=== PATIENT | female | born 1935 | race Caucasian/White ===

== ENCOUNTER 2017-08-12 13:42 | Inpatient (IN) | payer MEDICARE, BC ==
[~2017-08-12] VITALS: Ht 160 cm; Wt 60.0 kg
[~2017-08-12 13:42] MED LIST: DICL100G15 TOP
[2017-08-12] MEDS ORDERED: acetaminophen 650mg rectal suppository RC STA (14:05)
[2017-08-12] MEDS ORDERED: normal saline 1000ML IV soln IV ONE (14:05)
[2017-08-12] MEDS ORDERED: acetaminophen 325mg tablet PO STA (14:05)
[2017-08-12] MEDS ORDERED: levoFLOXACIN-Levaquin 750MG/D5 150 ML IV ONE (14:05)
[2017-08-12 14:17] LABS: CLARITY,URINE SLIGHTLY CLOUDY (Clear); COLOR,URINE YELLOW (Yellow); GLUCOSE, URINE NEGATIVE (Neg); KETONES,URINE NEGATIVE (Neg); LEUKOCYTE ESTERASE ,URINE TRACE (Neg); NITRITES, URINE POSITIVE (Neg); OCCULT BLOOD,URINE MODERATE (Neg); PH,URINE 6.5 (4.8-8.0); PROTEIN,URINE 100 mg/dl (Neg); UROBILINOGEN,URINE 0.2 E.U/dL (0.2-1.0)
[2017-08-12 14:19] LABS: UA COLLECTION TYPE FOLEY CATH
[2017-08-12 14:27] LABS: BACTERIA,URINE 3+ /HPF (Neg); SQUAMOUS EPITHELIAL CELL,UR MODERATE /LPF (FEW); WBC CLUMPS,URINE MODERATE /HPF (NEGATIVE); WBC,URINE 50-100 /HPF (0-4)
[2017-08-12 14:50] LABS: BASOPHILS % (AUTO) 0 % (0-1); EOSINOPHILS % (AUTO) 0 % (0-6); HEMATOCRIT 34.4 % (35.0-45.0); HEMOGLOBIN 11.8 g/dl (12.0-16.0); LYMPHOCYTES # (AUTO) 0.8 X10'3 (1.1-4.8); LYMPHOCYTES % (AUTO) 6.3 % (21-51); MEAN CORPUSCULAR HEMOGLOBIN 29.6 PG (27.0-31.0); MEAN CORPUSCULAR HGB CONC 34.2 % (33.0-36.5); MEAN CORPUSCULAR VOLUME 86.5 FL (78-98); MEAN PLATELET VOLUME 6.4 FL (7.4-10.4); MONOCYTES # (AUTO) 0.4 X10'3 (0-0.9); NEUTROPHILS # (AUTO) 12.2 X10'3 (1.8-7.7); NEUTROPHILS % (AUTO) 90.7 % (42-75); PLATELET COUNT 211 X10'3 (140-440); RED BLOOD COUNT 3.98 X10'6 (4.20-5.60); RED CELL DISTRIBUTION WIDTH 13.4 % (11.5-14.5); WHITE BLOOD COUNT 13.5 X10'3 (4.5-11.0)
[2017-08-12 14:56] LABS: PROTHROMBIN TIME 10.2 SECONDS (9.0-12.0)
[2017-08-12 15:02] LABS: ALANINE AMINOTRANSFERASE 12 U/L (12-78); ALBUMIN 3.2 G/DL (3.4-5.0); ALBUMIN/GLOBULIN RATIO 0.8 (1.1-1.5); ALKALINE PHOSPHATASE 77 IU/L (46-116); ANION GAP 13 (8-16); ASPARTATE AMINO TRANSFERASE 19 U/L (10-37); BILIRUBIN,TOTAL 0.6 MG/DL (0.1-1.0); BLOOD UREA NITROGEN 23 MG/DL (7-18); BUN/CREATININE RATIO 19.3 (6.6-38.0); CALCIUM 9.3 MG/DL (8.5-10.1); CHLORIDE 103 MMOL/L (99-107); CREATININE 1.19 MG/DL (0.40-0.90); GLUCOSE 96 MG/DL (70-104); POTASSIUM 3.8 MMOL/L (3.5-5.1); SODIUM 138 MMOL/L (135-145); TOTAL PROTEIN 7.3 G/DL (6.4-8.2); eGFR 44 ML/MIN
[2017-08-12] MEDS ORDERED: NO HOME MEDS (16:09)
[2017-08-12] MEDS ORDERED: LORazepam 2 mg/ml vial IV ONE (16:15)
[2017-08-12] MEDS ORDERED: acetaminophen 325mg tablet PO PRN (19:10)
[2017-08-12] MEDS ORDERED: ondansetron/PF 4mg/2ml inj IV PRN (19:10)
[2017-08-12] MEDS ORDERED: mag hydrox/Alum hydrox/simeth 30ml oral suspension PO PRN (19:10)
[2017-08-12] MEDS ORDERED: magnesium hydroxide 30ml (MOM) UD suspension PO PRN (19:10)
[2017-08-12] MEDS ORDERED: acetaminophen 650mg rectal suppository RC PRN (19:15)
[2017-08-12] MEDS ORDERED: LORazepam 2 mg/ml vial IV PRN (19:25)
[2017-08-12 19:46] LABS: CHOL/HDL RATIO 2.2 (0.00-4.99); CHOLESTEROL 191 MG/DL (0-200); HDL CHOLESTEROL 87 MG/DL (35-60); LDL CHOLESTEROL 87 MG/DL (50-100); TRIGLYCERIDES 90 MG/DL (20-135)
[2017-08-12] MEDS: normal saline 1000ml 1,000 ML IV SCH (20:24)
[2017-08-12] MEDS: cefepime 2g/NS 100ml ADVANTAGE 100 ML IV SCH (20:24)
[2017-08-12] MEDS: heparin, porcine 5000 units/ml vial SQ SCH (20:25)
[2017-08-12 21:30] VITALS: BP 140/67
[2017-08-12 23:00] VITALS: BP 151/69
[2017-08-13 03:00] VITALS: BP 164/78
[2017-08-13] MEDS: normal saline 1000ml 1,000 ML IV SCH ×2 (05:10→15:09)
[2017-08-13 05:55] LABS: BASOPHILS % (AUTO) 0 % (0-1); EOSINOPHILS % (AUTO) 0 % (0-6); HEMATOCRIT 31.5 % (35.0-45.0); HEMOGLOBIN 10.6 g/dl (12.0-16.0); LYMPHOCYTES # (AUTO) 0.5 X10'3 (1.1-4.8); LYMPHOCYTES % (AUTO) 2.9 % (21-51); MEAN CORPUSCULAR HEMOGLOBIN 29.2 PG (27.0-31.0); MEAN CORPUSCULAR HGB CONC 33.8 % (33.0-36.5); MEAN CORPUSCULAR VOLUME 86.3 FL (78-98); MEAN PLATELET VOLUME 6.5 FL (7.4-10.4); MONOCYTES # (AUTO) 0.9 X10'3 (0-0.9); MONOCYTES % (AUTO) 5.5 % (2-12); NEUTROPHILS # (AUTO) 14.1 X10'3 (1.8-7.7); NEUTROPHILS % (AUTO) 91.6 % (42-75); PLATELET COUNT 160 X10'3 (140-440); RED BLOOD COUNT 3.65 X10'6 (4.20-5.60); RED CELL DISTRIBUTION WIDTH 13.2 % (11.5-14.5); WHITE BLOOD COUNT 15.4 X10'3 (4.5-11.0)
[2017-08-13 06:00] VITALS: BP 162/66
[2017-08-13 06:13] LABS: ALANINE AMINOTRANSFERASE 11 U/L (12-78); ALBUMIN 2.5 G/DL (3.4-5.0); ALBUMIN/GLOBULIN RATIO 0.6 (1.1-1.5); ALKALINE PHOSPHATASE 60 IU/L (46-116); ANION GAP 13 (8-16); ASPARTATE AMINO TRANSFERASE 17 U/L (10-37); BILIRUBIN,TOTAL 0.6 MG/DL (0.1-1.0); BLOOD UREA NITROGEN 22 MG/DL (7-18); BUN/CREATININE RATIO 18.8 (6.6-38.0); CHLORIDE 102 MMOL/L (99-107); CREATININE 1.17 MG/DL (0.40-0.90); GLUCOSE 103 MG/DL (70-104); SODIUM 136 MMOL/L (135-145); TOTAL CARBON DIOXIDE 21.5 MMOL/L (24-32); TOTAL PROTEIN 6.5 G/DL (6.4-8.2); eGFR 45 ML/MIN
[2017-08-13] MEDS: cefepime 2g/NS 100ml ADVANTAGE 100 ML IV SCH ×2 (07:54→20:04)
[2017-08-13] MEDS: heparin, porcine 5000 units/ml vial SQ SCH ×2 (07:55→20:05)
[2017-08-13] MEDS: pantoprazole 40mg Tablet.DR PO SCH (07:55)
[2017-08-13] MEDS: aspirin 81mg tablet.DR PO SCH (07:55)
[2017-08-13 11:00] VITALS: BP 157/73
[2017-08-13] MEDS ORDERED: amLODIPine 5mg tablet PO ONE (13:10)
[2017-08-13 15:00] VITALS: BP 115/64
[2017-08-13 18:00] VITALS: BP 165/83
[2017-08-13] MEDS: lactobacillus rhamnosus 10,000 MMU CELLS/CAPSULE PO SCH (20:05)
[2017-08-13 22:00] VITALS: BP_SYST 105; BP_SYST 128; BP_DIAS 69; BP_DIAS 74
[2017-08-14 02:00] VITALS: BP 132/66
[2017-08-14 04:57] LABS: BASOPHILS % (AUTO) 0.1 % (0-1); EOSINOPHILS % (AUTO) 0 % (0-6); HEMATOCRIT 30.1 % (35.0-45.0); HEMOGLOBIN 9.9 g/dl (12.0-16.0); LYMPHOCYTES # (AUTO) 0.6 X10'3 (1.1-4.8); LYMPHOCYTES % (AUTO) 6.7 % (21-51); MEAN CORPUSCULAR HEMOGLOBIN 28.9 PG (27.0-31.0); MEAN CORPUSCULAR VOLUME 87.8 FL (78-98); MEAN PLATELET VOLUME 6.7 FL (7.4-10.4); MONOCYTES # (AUTO) 0.6 X10'3 (0-0.9); MONOCYTES % (AUTO) 6.8 % (2-12); NEUTROPHILS # (AUTO) 8.2 X10'3 (1.8-7.7); NEUTROPHILS % (AUTO) 86.4 % (42-75); PLATELET COUNT 149 X10'3 (140-440); RED BLOOD COUNT 3.43 X10'6 (4.20-5.60); RED CELL DISTRIBUTION WIDTH 13.4 % (11.5-14.5); WHITE BLOOD COUNT 9.5 X10'3 (4.5-11.0)
[2017-08-14] MEDS: normal saline 1000ml 1,000 ML IV SCH ×2 (05:00→11:10)
[2017-08-14 05:31] LABS: ALANINE AMINOTRANSFERASE 8 U/L (12-78); ALBUMIN 2.1 G/DL (3.4-5.0); ALBUMIN/GLOBULIN RATIO 0.6 (1.1-1.5); ALKALINE PHOSPHATASE 54 IU/L (46-116); ASPARTATE AMINO TRANSFERASE 14 U/L (10-37); BILIRUBIN,TOTAL 0.4 MG/DL (0.1-1.0); BLOOD UREA NITROGEN 22 MG/DL (7-18); BUN/CREATININE RATIO 20.8 (6.6-38.0); CALCIUM 9.2 MG/DL (8.5-10.1); CHLORIDE 103 MMOL/L (99-107); CREATININE 1.06 MG/DL (0.40-0.90); GLUCOSE 111 MG/DL (70-104); TOTAL CARBON DIOXIDE 21.6 MMOL/L (24-32); TOTAL PROTEIN 5.7 G/DL (6.4-8.2); eGFR 50 ML/MIN
[2017-08-14 05:49] LABS: ANION GAP 9 (8-16); SODIUM 134 MMOL/L (135-145)
[2017-08-14 06:34] LABS: POTASSIUM 2.9 MMOL/L (3.5-5.1)
[2017-08-14] MEDS ORDERED: potassium Cl 20 mEq SR tablet PO PRN (06:45)
[2017-08-14] MEDS ORDERED: magnesium 4gm in 100ml NS 100 ML IV PRN (06:45)
[2017-08-14] MEDS ORDERED: potassium Cl 40MEQ/NS 500ml 500 ML IV PRN ×2 (06:45)
[2017-08-14] MEDS ORDERED: magnesium/D5W IVPB 100 ML IV PRN (06:45)
[2017-08-14 07:06] VITALS: BP 163/70
[2017-08-14] MEDS: pantoprazole 40mg Tablet.DR PO SCH (08:40)
[2017-08-14] MEDS: heparin, porcine 5000 units/ml vial SQ SCH ×2 (08:40→20:51)
[2017-08-14] MEDS: aspirin 81mg tablet.DR PO SCH (08:41)
[2017-08-14] MEDS: amLODIPine 5mg tablet PO SCH (08:42)
[2017-08-14] MEDS: lactobacillus rhamnosus 10,000 MMU CELLS/CAPSULE PO SCH ×2 (08:42→20:51)
[2017-08-14] MEDS: CefTRIAXone 2gm/D5W 50ml 50 ML IV SCH (08:55)
[2017-08-14 11:00] VITALS: BP 148/72
[2017-08-14] MEDS: potassium Cl 20 mEq SR tablet PO PRN ×2 (11:32→17:47)
[2017-08-14 15:00] VITALS: BP 158/62
[2017-08-14] MEDS ORDERED: HYDROcodone/acetaminophen 5mg/325mg tablet PO PRN (16:00)
[2017-08-14 18:00] VITALS: BP 130/64
[2017-08-14] MEDS: nystatin 15 GM powder TP SCH (20:51)
[2017-08-14 22:00] VITALS: BP 147/70
[2017-08-15] MEDS: potassium Cl 20 mEq SR tablet PO PRN (01:35)
[2017-08-15] MEDS: normal saline 1000ml 1,000 ML IV SCH ×2 (01:49→07:10)
[2017-08-15 02:00] VITALS: BP 166/88
[2017-08-15 06:14] LABS: BASOPHILS % (AUTO) 0.3 % (0-1); EOSINOPHILS # (AUTO) 0.1 X10'3 (0-0.9); EOSINOPHILS % (AUTO) 0.7 % (0-6); HEMATOCRIT 31.5 % (35.0-45.0); HEMOGLOBIN 10.7 g/dl (12.0-16.0); LYMPHOCYTES % (AUTO) 12.1 % (21-51); MEAN CORPUSCULAR VOLUME 88.1 FL (78-98); MEAN PLATELET VOLUME 7.6 FL (7.4-10.4); MONOCYTES # (AUTO) 0.8 X10'3 (0-0.9); MONOCYTES % (AUTO) 10.2 % (2-12); NEUTROPHILS # (AUTO) 6.2 X10'3 (1.8-7.7); NEUTROPHILS % (AUTO) 76.7 % (42-75); PLATELET COUNT 149 X10'3 (140-440); RED BLOOD COUNT 3.57 X10'6 (4.20-5.60); RED CELL DISTRIBUTION WIDTH 12.7 % (11.5-14.5); WHITE BLOOD COUNT 8.1 X10'3 (4.5-11.0)
[2017-08-15 06:17] LABS: ALANINE AMINOTRANSFERASE 9 U/L (12-78); ALBUMIN 2.3 G/DL (3.4-5.0); ALBUMIN/GLOBULIN RATIO 0.6 (1.1-1.5); ALKALINE PHOSPHATASE 60 IU/L (46-116); ANION GAP 11 (8-16); ASPARTATE AMINO TRANSFERASE 15 U/L (10-37); BILIRUBIN,TOTAL 0.4 MG/DL (0.1-1.0); BLOOD UREA NITROGEN 15 MG/DL (7-18); CALCIUM 9.3 MG/DL (8.5-10.1); CHLORIDE 106 MMOL/L (99-107); GLUCOSE 94 MG/DL (70-104); MAGNESIUM 1.2 MG/DL (1.5-2.4); POTASSIUM 3.6 MMOL/L (3.5-5.1); SODIUM 138 MMOL/L (135-145); TOTAL CARBON DIOXIDE 21.4 MMOL/L (24-32); TOTAL PROTEIN 6.2 G/DL (6.4-8.2); eGFR 53 ML/MIN
[2017-08-15 07:13] VITALS: BP 172/74
[2017-08-15] MEDS: pantoprazole 40mg Tablet.DR PO SCH (08:12)
[2017-08-15] MEDS: heparin, porcine 5000 units/ml vial SQ SCH ×2 (08:13→19:37)
[2017-08-15] MEDS: amLODIPine 5mg tablet PO SCH (08:13)
[2017-08-15] MEDS: lactobacillus rhamnosus 10,000 MMU CELLS/CAPSULE PO SCH ×2 (08:13→19:37)
[2017-08-15] MEDS: aspirin 81mg tablet.DR PO SCH (08:14)
[2017-08-15] MEDS: magnesium Cl slow-release 64mg tablet PO PRN ×2 (08:15→19:37)
[2017-08-15] MEDS: nystatin 15 GM powder TP SCH ×3 (08:17→19:37)
[2017-08-15] MEDS: CefTRIAXone 2gm/D5W 50ml 50 ML IV SCH (08:17)
[2017-08-15 11:00] VITALS: BP 127/73
[2017-08-15 15:00] VITALS: BP 122/62
[2017-08-15 18:00] VITALS: BP 158/60
[2017-08-15 22:00] VITALS: BP 179/85
[2017-08-16] MEDS ORDERED: hydrALAZINE 20mg/ml inj. IV PRN (00:05)
[2017-08-16 02:00] VITALS: BP 154/76
[2017-08-16 05:50] LABS: BASOPHILS % (AUTO) 0.3 % (0-1); EOSINOPHILS # (AUTO) 0.2 X10'3 (0-0.9); EOSINOPHILS % (AUTO) 3.1 % (0-6); HEMOGLOBIN 10.5 g/dl (12.0-16.0); LYMPHOCYTES # (AUTO) 1.1 X10'3 (1.1-4.8); LYMPHOCYTES % (AUTO) 16.6 % (21-51); MEAN CORPUSCULAR HEMOGLOBIN 29.5 PG (27.0-31.0); MEAN CORPUSCULAR HGB CONC 33.8 % (33.0-36.5); MEAN CORPUSCULAR VOLUME 87.1 FL (78-98); MEAN PLATELET VOLUME 7.1 FL (7.4-10.4); MONOCYTES # (AUTO) 0.7 X10'3 (0-0.9); MONOCYTES % (AUTO) 11.2 % (2-12); NEUTROPHILS # (AUTO) 4.5 X10'3 (1.8-7.7); NEUTROPHILS % (AUTO) 68.8 % (42-75); PLATELET COUNT 177 X10'3 (140-440); RED BLOOD COUNT 3.56 X10'6 (4.20-5.60); RED CELL DISTRIBUTION WIDTH 13.1 % (11.5-14.5); WHITE BLOOD COUNT 6.6 X10'3 (4.5-11.0)
[2017-08-16 06:29] LABS: ALANINE AMINOTRANSFERASE 11 U/L (12-78); ALBUMIN 2.3 G/DL (3.4-5.0); ALBUMIN/GLOBULIN RATIO 0.6 (1.1-1.5); ALKALINE PHOSPHATASE 61 IU/L (46-116); ANION GAP 9 (8-16); ASPARTATE AMINO TRANSFERASE 15 U/L (10-37); BILIRUBIN,TOTAL 0.3 MG/DL (0.1-1.0); BLOOD UREA NITROGEN 14 MG/DL (7-18); BUN/CREATININE RATIO 14.4 (6.6-38.0); CALCIUM 9.4 MG/DL (8.5-10.1); CHLORIDE 107 MMOL/L (99-107); CREATININE 0.97 MG/DL (0.40-0.90); GLUCOSE 91 MG/DL (70-104); MAGNESIUM 1.2 MG/DL (1.5-2.4); POTASSIUM 3.6 MMOL/L (3.5-5.1); SODIUM 139 MMOL/L (135-145); TOTAL CARBON DIOXIDE 22.7 MMOL/L (24-32); TOTAL PROTEIN 6.3 G/DL (6.4-8.2); eGFR 55 ML/MIN
[2017-08-16 07:09] VITALS: BP 162/86
[2017-08-16] MEDS: pantoprazole 40mg Tablet.DR PO SCH (08:24)
[2017-08-16] MEDS: CefTRIAXone 2gm/D5W 50ml 50 ML IV SCH (08:24)
[2017-08-16] MEDS: amLODIPine 5mg tablet PO SCH (08:24)
[2017-08-16] MEDS: lactobacillus rhamnosus 10,000 MMU CELLS/CAPSULE PO SCH (08:24)
[2017-08-16] MEDS: heparin, porcine 5000 units/ml vial SQ SCH (08:24)
[2017-08-16] MEDS: aspirin 81mg tablet.DR PO SCH (08:26)
[2017-08-16] MEDS: nystatin 15 GM powder TP SCH ×2 (08:27→13:21)
[2017-08-16 11:00] VITALS: BP 129/62
[2017-08-16] MEDS ORDERED: lisinopril 10 MG tablet PO ONE (14:10)
[2017-08-16 15:00] VITALS: BP 144/67
[2017-08-16] MEDS ORDERED: AMOX-422 PO (15:51)
[2017-08-16] MEDS ORDERED: LISI10TA4 PO (15:51)
[2017-08-16] MEDS ORDERED: AMLO5TAB4 PO (15:51)
[2017-08-17] MEDS ORDERED: lisinopril 10 MG tablet PO SCH (08:00)
== END 2017-08-16 16:56 | disposition home or self-care (01) | DRG 871 ==
LOC: ER 13:43 → ED HOLD 19:10 → PCU 3S 21:11
PROVIDERS: ADMIT Family Medicine; ATTEND Family Medicine
DX: A41.9 Sepsis, unspecified organism (principal); G93.41 Metabolic encephalopathy; N17.0 Acute kidney failure with tubular necrosis; N39.0 Urinary tract infection, site not specified; L03.116 Cellulitis of left lower limb; E87.6 Hypokalemia; I16.0 Hypertensive urgency; F41.9 Anxiety disorder, unspecified; I48.91 Unspecified atrial fibrillation; M19.90 Unspecified osteoarthritis, unspecified site; A49.01 Methicillin susceptible Staphylococcus aureus infection, unspecified site
CPT/HCPCS: 36415; 70450; 70544; 70551; 71045; 80053; 80061; 81001; 83605; 83735; 84145; 85025; 85610; 87040; 87070; 87077; 87088; 87186; 92616; 93005; 93306; 93880; 93971; 96365; 96375; 97116; 97162; 97530; 99291; A6258; C1758; J0360; J0692; J0696; J1644; J1956; J2060; J7030